=== PATIENT | male | born 1930 | race Caucasian/White ===

== ENCOUNTER → 2017-01-30 | Outpatient (CLI) | payer MEDICARE ==
[~2017-01-30] MED LIST: ASPI325T PO; ATEN1TAB74 PO; FELO5TAB; HYDR-2768 PO; POTA-243; PRIN10TA PO; SIMV20 PO; TAB-TAB
== END ==
LOC: PLAB 07:03
PROVIDERS: ATTEND Family Medicine
DX: C61 Malignant neoplasm of prostate (principal)
CPT/HCPCS: 36415; 84153

== ENCOUNTER → 2017-02-06 | Outpatient (CLI) | payer MEDICARE | LOC: PLAB 10:12 | PROVIDERS: ATTEND Family Medicine | DX: Z01.812 Encounter for preprocedural laboratory examination (principal) | CPT/HCPCS: 36415; 82565; 84520 ==

== ENCOUNTER → 2018-02-12 | Outpatient (CLI) | payer MEDICARE ==
[2018-02-12 10:39] LABS: AST (GOT) 21 U/L (15-37); BICARBONATE 29.3 MEQ/L (21.0-32.0); BLOOD UREA NITROGEN 20 MG/DL (7-18); CALCIUM 9.6 MG/DL (8.5-10.1); CHLORIDE 103 MEQ/L (98-107); CREATININE 1.11 MG/DL (0.60-1.30); GLOMERULAR FILTRATION RATE 63 ML/MIN (>89); GLUCOSE,FASTING 92 MG/DL (74-99); SODIUM (NA) 141 MEQ/L (136-145)
[2018-02-12 10:41] LABS: ALT (GPT) 20 U/L (12-78); CHOLESTEROL 182 MG/DL (120-200); TRIGLYCERIDES 103 MG/DL (42-150)
[2018-02-12 10:44] LABS: ALKALINE PHOSPHATASE 80 U/L (45-117); CHOLESTEROL/ HDL RATIO 2.68 RATIO; HDL CHOLESTEROL 67.9 MG/DL (40.0-60.0); LDL CHOLESTEROL 94 MG/DL (0-99); TOTAL BILIRUBIN ADULT 0.5 MG/DL (0.2-1.0); TOTAL PROTEIN 7.5 GM/DL (6.4-8.2)
== END ==
LOC: PLAB 08:06
PROVIDERS: ATTEND Family Medicine
DX: I10 Essential (primary) hypertension (principal); E78.2 Mixed hyperlipidemia; Z85.46 Personal history of malignant neoplasm of prostate
CPT/HCPCS: 36415; 80053; 80061

== ENCOUNTER 2018-04-20 09:11 | Emergency (ER) | payer MEDICARE ==
[~2018-04-20] VITALS: Ht 175.3 cm; Wt 68.0 kg
[2018-04-20 09:15] VITALS: BP 138/74; PULSE 69; RESP 16; TEMP 98.2; O2SAT 96
--- NOTE | 2018-04-20 10:04 | RADRPT ---
EXAM DATE: 04/20/2018 9:54 AM EDT AGE/SEX: 87 years / Male INDICATIONS: Chest tightness. CLINICAL DATA: This is the patient's initial encounter. Patient reports that signs and symptoms have been present for 2 days and indicates a pain score of 0/10. MEDICAL/SURGICAL HISTORY: Hypertension. None. COMPARISON: POI, XR CHEST PA AND LAT, 06/05/2015. . FINDINGS: There is mild subsegmental atelectasis in the right base. The lungs are otherwise clear. No effusion is present. Cardiac contours are stable and satisfactory. There is degenerative change in the spine a nd compressive deformities in the thoracolumbar junction region. CONCLUSION: Mild right base atelectasis. Electronically signed by: Stefan Barrera MD 04/20/2018 10:02 AM EDT
[2018-04-20 10:14] VITALS: BP_SYST 177; BP_SYST 178; BP_DIAS 84; BP_DIAS 90; PULSE 57; RESP 16; O2SAT 97
[2018-04-20 10:24] LABS: HEMOGLOBIN 14.1 GM/DL (13.0-17.0); MEAN CELL VOLUME 89.6 FL (80.0-100.0); MEAN CORPUSCULAR HEMOGLOBIN 29.3 PG (27.0-34.0); MEAN CORPUSCULAR HGB CONC 32.7 % (32.0-36.0); MEAN PLATELET VOLUME 8.4 FL (7.0-11.0); PLATELET COUNT 227 TH/MM3 (150-450); RED CELL DISTRIBUTION WIDTH 14.8 % (11.6-17.2); WHITE BLOOD COUNT 6.5 TH/MM3 (4.0-11.0)
[2018-04-20] MEDS ORDERED: ASPI-183 PO (10:25)
[2018-04-20] MEDS ORDERED: ATOR20TA15 PO (10:25)
[2018-04-20] MEDS ORDERED: ATEN25TA PO (10:25)
[2018-04-20] MEDS ORDERED: LISI10TA3 PO (10:25)
[2018-04-20] MEDS ORDERED: POTA10TA2 PO (10:25)
[2018-04-20] MEDS ORDERED: HYDR25TA5 PO (10:25)
[2018-04-20] MEDS ORDERED: AMLO5TAB2 PO (10:25)
[2018-04-20] MEDS ORDERED: MULT1TAB46 PO (10:25)
[2018-04-20] MEDS ORDERED: ASPIRIN 81 MG CHEW TAB CHEW ONE (10:30)
--- NOTE | 2018-04-20 10:32 | PD ---
HPI Chief Complaint: Chest Pain Time Seen by Provider: 10:17 Travel History International Travel<30 days: No Contact w/Intl Traveler<30days: No Traveled to known affect area: No History of Present Illness HPI The patient is a 87-year-old male who presents to the emergency department via private vehicle for chest tightness. 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 He notes intermittent episodes of chest tightness which is substernal, nonradiating, and not associated with any shortness of breath, nausea, vomiting , or diaphoresis. The patient denies any exertional component, however, a friend in the room states that the patient did have an exertional component on Monday. The patient does have a history of hypertension and hyperlipidemia, denies any known history of coronary artery disease, tobacco use, or diabetes. The patient thinks he may have had a stress test approximately 5-8 years ago and is currently followed by his emergency response coordinator, Dr. Bautista. The patient called Dr. Bautista's office several days ago and they advised him to come to the emergency department for evaluation. Symptoms are moderate. PFSH Past Medical History Asthma: No Blood Disorders: No Cancer: No Cardiac Catheterization: Yes (denies 2017 ) Cardiovascular Problems: Yes High Cholesterol: Yes COPD: No Cerebrovascular Accident: Yes (TIA) Diabetes: No Endocrine: No Genitourinary: Yes Hypertension: Yes Immune Disorder: No Musculoskeletal: Yes Neurologic: No Psychiatric: No Reproductive: No Respiratory: No Past Surgical History AICD: No Genitourinary Surgery: Yes (TURP 7-8 YRS AGO) Pacemaker: No Other Surgery: Yes Social History Alcohol Use: Yes (WINE occassianly ) Tobacco Use: No Substance Use: No Allergies-Medications (Allergen,Severity, Reaction): Coded Allergies: No Known Allergies (Verified Adverse Reaction, Unknown, 04/20/18) Reported Meds & Prescriptions Reported Meds & Active Scripts Active Reported Aspirin 325 Mg Tab 325 Mg PO DAILY Atorvastatin (Atorvastatin Calcium) 20 Mg Tab 20 Mg PO HS Lisinopril 10 Mg Tab 10 Mg PO DAILY Amlodipine (Amlodipine Besylate) 5 Mg Tab 5 Mg PO DAILY Multi Vitamin Daily (Multiple Vitamin) 1 Tab Tab PO DAILY Potassium Chloride ER (Potassium Chloride) 10 Meq Tab 10 Meq PO DAILY Hydrochlorothiazide 25 Mg Tab 25 Mg PO DAILY Atenolol 25 Mg Tab 25 Mg PO DAILY Review of Systems Except as stated in HPI: all other systems reviewed are Neg General / Constitutional: No: Fever HENT: No: Lightheadedness Cardiovascular: Positive: Chest Pain or Discomfort (Tightness), No: Diaphoresis , Dyspnea on exertion Respiratory: No: Shortness of Breath Gastrointestinal: No: Nausea, Vomiting Musculoskeletal: No: Edema Neurologic: No: Dizziness Physical Exam Narrative GENERAL: Awake, alert, pleasant 87-year-old male who appears his stated age and is in no acute respiratory distress. SKIN: Focused skin assessment warm/dry. HEAD: Atraumatic. Normocephalic. EYES: No injection or drainage. ENT: No nasal bleeding or discharge. Mucous membranes pink and moist. NECK: Trachea midline. No JVD. CARDIOVASCULAR: Regular rate and rhythm. No murmur appreciated. RESPIRATORY: No accessory muscle use. Clear to auscultation. Breath sounds equal bilaterally. GASTROINTESTINAL: Abdomen soft, non-tender, nondistended. No rebound tenderness. MUSCULOSKELETAL: No obvious deformities. No clubbing. No cyanosis. No edema. NEUROLOGICAL: Awake and alert. No obvious cranial nerve deficits. Motor grossly within normal limits. Normal speech. Nonfocal. PSYCHIATRIC: Appropriate mood and affect; insight and judgment normal. Data Data Last Documented VS Vital Signs Date Time Temp Pulse Resp B/P (MAP) Pulse Ox O2 Delivery O2 Flow Rate FiO2 04/20/18 11:41 98.1 64 17 157/94 (115) 95 Room Air Orders Orders Electrocardiogram (04/20/18 09:20) Complete Blood Count With Diff (04/20/18 09:20) Basic Metabolic Panel (Bmp) (04/20/18 09:20) Ckmb (Isoenzyme) Profile (04/20/18 09:20) Troponin I (04/20/18 09:20) Iv Access Insert/Monitor (04/20/18 09:20) Ecg Monitoring (04/20/18 09:20) Oxygen Administration (04/20/18 09:20) Oximetry (04/20/18 09:20) Chest, Pa & Lat (04/20/18 ) Aspirin Chew (Aspirin Chew) (04/20/18 10:30) Hepatic Functional Panel (04/20/18 10:24) Lipase (04/20/18 10:24) CKMB (04/20/18 09:34) CKMB% (04/20/18 09:34) Troponin I (04/20/18 12:34) Ed Discharge Order (04/20/18 13:26) Labs Laboratory Tests Test 04/20/18 09:34 04/20/18 10:20 04/20/18 12:32 White Blood Count 6.5 TH/MM3 Red Blood Count 4.80 MIL/MM3 Hemoglobin 14.1 GM/DL Hematocrit 43.0 % Mean Corpuscular Volume 89.6 FL Mean Corpuscular Hemoglobin 29.3 PG Mean Corpuscular Hemoglobin Concent 32.7 % Red Cell Distribution Width 14.8 % Platelet Count 227 TH/MM3 Mean Platelet Volume 8.4 FL CBC Comment AUTO DIFF Differential Total Cells Counted 100 Neutrophils % (Manual) 47 % Lymphocytes % 45 % Monocytes % 5 % Eosinophils % 2 % Neutrophils # (Manual) 3.1 TH/MM3 Myelocytes 1 % Differential Comment FINAL DIFF MANUAL Platelet Estimate NORMAL Platelet Morphology Comment NORMAL Ovalocytes 1+ Blood Urea Nitrogen 17 MG/DL Creatinine 1.18 MG/DL Random Glucose 128 MG/DL Calcium Level 9.1 MG/DL Sodium Level 142 MEQ/L Potassium Level 4.1 MEQ/L Chloride Level 106 MEQ/L Carbon Dioxide Level 27.4 MEQ/L Anion Gap 9 MEQ/L Estimat Glomerular Filtration Rate 59 ML/MIN Total Creatine Kinase 122 U/L Creatine Kinase MB 0.9 NG/ML Troponin I LESS THAN 0.02 NG/ML LESS THAN 0.02 NG/ML Total Bilirubin 0.3 MG/DL Direct Bilirubin 0.1 MG/DL Indirect Bilirubin 0.2 MG/DL Aspartate Amino Transf (AST/SGOT) 20 U/L Alanine Aminotransferase (ALT/SGPT) 19 U/L Alkaline Phosphatase 81 U/L Total Protein 7.5 GM/DL Albumin 3.9 GM/DL Lipase 206 U/L [facility] Medical Decision Making Medical Screen Exam Complete: Yes Emergency Medical Condition: Yes Medical Record Reviewed: Yes Interpretation(s) EKG reveals sinus bradycardia with no ischemic changes noted. Borderline first- degree AV block with CT interval 219 ms. Laboratory Tests Test 04/20/18 09:34 04/20/18 10:20 04/20/18 12:32 White Blood Count 6.5 TH/MM3 Red Blood Count 4.80 MIL/MM3 Hemoglobin 14.1 GM/DL Hematocrit 43.0 % Mean Corpuscular Volume 89.6 FL Mean Corpuscular Hemoglobin 29.3 PG Mean Corpuscular Hemoglobin Concent 32.7 % Red Cell Distribution Width 14.8 % Platelet Count 227 TH/MM3 Mean Platelet Volume 8.4 FL CBC Comment AUTO DIFF Differential Total Cells Counted 100 Neutrophils % (Manual) 47 % Lymphocytes % 45 % Monocytes % 5 % Eosinophils % 2 % Neutrophils # (Manual) 3.1 TH/MM3 Myelocytes 1 % Differential Comment FINAL DIFF MANUAL Platelet Estimate NORMAL Platelet Morphology Comment NORMAL Ovalocytes 1+ Blood Urea Nitrogen 17 MG/DL Creatinine 1.18 MG/DL Random Glucose 128 MG/DL Calcium Level 9.1 MG/DL Sodium Level 142 MEQ/L Potassium Level 4.1 MEQ/L Chloride Level 106 MEQ/L Carbon Dioxide Level 27.4 MEQ/L Anion Gap 9 MEQ/L Estimat Glomerular Filtration Rate 59 ML/MIN Total Creatine Kinase 122 U/L Creatine Kinase MB 0.9 NG/ML Troponin I LESS THAN 0.02 NG/ML LESS THAN 0.02 NG/ML Total Bilirubin 0.3 MG/DL Direct Bilirubin 0.1 MG/DL Indirect Bilirubin 0.2 MG/DL Aspartate Amino Transf (AST/SGOT) 20 U/L Alanine Aminotransferase (ALT/SGPT) 19 U/L Alkaline Phosphatase 81 U/L Total Protein 7.5 GM/DL Albumin 3.9 GM/DL Lipase 206 U/L Last Impressions Chest X-Ray 04/20/18 0000 Signed Impressions: CONCLUSION: Mild right base atelectasis. Differential Diagnosis Differential diagnosis includes acute coronary syndrome, STEMI, GERD, esophageal spasm, cardiomyopathy, deconditioning, pulmonary embolism. Narrative Course IV was established, labs are drawn and sent, and the patient was placed on cardiac telemetry monitoring and continuous pulse oximetry monitoring. EKG was ordered and interpreted. Chest x-ray is obtained. The patient was administered aspirin 162 mg orally. Nitroglycerin was withheld as patient was chest pain-free without tightness upon arrival. Chest x-ray is unremarkable. The patient's initial troponin was less than 0.02. The patient has no chest tightness at this time. A call was placed to the patient's emergency response coordinator, Dr. Harrison Bautista, at 11:27 AM. I discussed the patient with Dr. Bautista at 11:50 AM who evaluated the patient's last catheterization report, the patient had normal coronary arteries at that time. After discussion with Dr. Bautista it was agreed the patient have a second troponin and if negative he will be discharged home and have an outpatient stress test next week. I discussed this plan of care with the patient who is comfortable with this plan of care. Therefore, second troponin was ordered at the 3 hour rosa at 12:34 PM. The patient's second troponin was less than 0.02. The patient has no chest tightness or chest pain currently. The patient will follow up next week with Dr. Bautista for outpatient stress test. He is advised to return if symptoms worsen or progress. Diagnosis Primary Impression: Chest tightness Patient Instructions: General Instructions Additional Instructions: Continue aspirin and other home medications as previously directed. Follow-up with Dr. Bautista next week. Return if symptoms worsen or progress. Please provide the patient a copy of his chest x-ray results and lab results at discharge. Med/Other Pt SpecificInfo: No Change to Meds Disposition: 01 DISCHARGE HOME Condition: Stable Henry Pickering MD April 20, 2018 10:32
[2018-04-20 10:43] LABS: TROPONIN I LESS THAN 0.02 NG/ML (0.02-0.05)
[2018-04-20 10:49] LABS: BICARBONATE 27.4 MEQ/L (21.0-32.0); BLOOD UREA NITROGEN 17 MG/DL (7-18); CALCIUM 9.1 MG/DL (8.5-10.1); CHLORIDE 106 MEQ/L (98-107); CREATININE 1.18 MG/DL (0.60-1.30); GLOMERULAR FILTRATION RATE 59 ML/MIN (>89); GLUCOSE,RANDOM 128 MG/DL (74-106); SODIUM (NA) 142 MEQ/L (136-145)
[2018-04-20 10:56] LABS: LYMPHOCYTES 45 % (9-44); MONOCYTES 5 % (0-8); MYELOCYTES 1 % (0-0); NEUTROPHIL # MANUAL DIFF 3.1 TH/MM3 (1.8-7.7); POLYS (SEG NEUTROPHILS) 47 % (16-70)
[2018-04-20 10:57] LABS: OVALOCYTES 1+ (NORMAL)
[2018-04-20 11:11] LABS: ALBUMIN 3.9 GM/DL (3.4-5.0); DIRECT BILIRUBIN ADULT 0.1 MG/DL (0.0-0.2)
[2018-04-20 11:20] LABS: INDIRECT BILIRUBIN 0.2 MG/DL (0.0-0.8); TOTAL BILIRUBIN ADULT 0.3 MG/DL (0.2-1.0); TOTAL PROTEIN 7.5 GM/DL (6.4-8.2)
[2018-04-20 11:41] VITALS: BP 157/94; PULSE 64; RESP 17; TEMP 98.1; O2SAT 95
--- NOTE | 2018-04-20 18:21 | EKG ---
Date Performed: 04/20/2018 Time Performed: 09:28:02 PTAGE: 87 years EKG: SINUS BRADYCARDIA WITH FIRST DEGREE AV BLOCK BORDERLINE LEFT AXIS DEVIATION Since previous tracing, no significant change noted ABNORMAL ECG PREVIOUS TRACING : 09/25/2014 06.22 DOCTOR: Veronica Kohler Interpretating Date/Time 04/20/2018 18:19:46
== END 2018-04-20 14:04 | disposition home or self-care (01) ==
LOC: NEPE 09:11
DX: R07.89 Other chest pain (principal); E78.00 Pure hypercholesterolemia, unspecified; I10 Essential (primary) hypertension
CPT/HCPCS: 71046; 80048; 80076; 82550; 82552; 83690; 84484; 85007; 85027; 93005

== ENCOUNTER → 2018-04-30 | Outpatient (CLI) | payer MEDICARE ==
[~2018-04-30] MED LIST changes: +AMLO5TAB2 PO; +ASPI-183 PO; -ASPI325T PO; -ATEN1TAB74 PO; +ATEN25TA PO; +ATOR20TA15 PO; -FELO5TAB; -HYDR-2768 PO; +HYDR25TA5 PO; +LISI10TA3 PO; +MULT1TAB46 PO; -POTA-243; +POTA10TA2 PO; -PRIN10TA PO; -SIMV20 PO; -TAB-TAB
[2018-04-30 11:08] LABS: AUTOMATED NEUTROPHIL # 2.5 TH/MM3 (1.8-7.7); BASOPHIL % 0.5 % (0.0-2.0); EOSINOPHIL # 0.1 TH/MM3 (0-0.4); EOSINOPHIL % 2.5 % (0.0-4.0); HEMATOCRIT 40.2 % (39.0-51.0); HEMOGLOBIN 13.6 GM/DL (13.0-17.0); LYMPH % 43.7 % (9.0-44.0); LYMPHOCYTE # 2.6 TH/MM3 (1.0-4.8); MEAN CELL VOLUME 88.1 FL (80.0-100.0); MEAN CORPUSCULAR HEMOGLOBIN 29.9 PG (27.0-34.0); MEAN PLATELET VOLUME 8.6 FL (7.0-11.0); MONO % 10.9 % (0.0-8.0); MONOCYTE # 0.7 TH/MM3 (0-0.9); NEUT % 42.4 % (16.0-70.0); PLATELET COUNT 218 TH/MM3 (150-450); RED BLOOD COUNT 4.56 MIL/MM3 (4.50-5.90); RED CELL DISTRIBUTION WIDTH 14.8 % (11.6-17.2)
== END ==
LOC: PLAB 06:40
PROVIDERS: ATTEND Internal Medicine Cardiovascular Disease
DX: R07.9 Chest pain, unspecified (principal); E78.5 Hyperlipidemia, unspecified; I10 Essential (primary) hypertension
CPT/HCPCS: 36415; 85025

== ENCOUNTER → 2018-05-21 | Outpatient (CLI) | payer MEDICARE | LOC: PLAB 06:34 | PROVIDERS: ATTEND Urology | DX: C61 Malignant neoplasm of prostate (principal) | CPT/HCPCS: 36415; 84153 ==